=== PATIENT | male | born 1975 | race Caucasian/White ===

== ENCOUNTER → 2018-01-07 06:44 | Outpatient (CLI) | payer BC, SELFPAY ==
--- NOTE | 2018-01-07 07:05 | CT_ITS ---
CT abdomen pelvis w con CLINICAL INDICATION: Right lower quadrant pain ITS.REASON: RLQ PAIN ORDERING PHYSICIAN: Ayleen Lynn PATIENT AGE: 42 years COMPARISON: 01/05/2017 TECHNIQUE: Axial images obtained with sagittal and coronal reformats. All CT scans at the facility use one or more dose reduction, viz: automated exposure control, ma/kV adjustment per patient size (including targeted exams where dose is matched to indication, i.e. head), or iterative reconstruction technique. PROCEDURE: Oral Contrast: Redicat IV Contrast: 75 mL's of Isovue-370. FINDINGS: 3 mm nodular opacity left lung base laterally nonspecific. 9 mm isodensity right hepatic lobe probably due to small cyst unchanged. No new liver lesions. The gallbladder, spleen, adrenal glands, pancreas, and kidneys have an unremarkable appearance. No renal or ureteral calculi. No intestinal obstruction or free air. Unremarkable appearing appendix. No evidence of intestinal obstruction or free air. No evidence of diverticulitis. There has been interval umbilical hernia repair with tiny abdominal wall defects containing fat adjacent to the umbilicus on both right and left side consistent with tiny periumbilical hernias. There is some mild stranding of the fat within the left lower quadrant within the pelvis and may be related to prior surgery/hernia repair. No abnormal fluid collections. Unremarkable appearing urinary bladder. In the left hemiscrotum there is a ringlike circular density with some decreased attenuation centrally. Etiology is indeterminate. Possible hydrocele. Scrotal ultrasound may be of further value. This did have a similar appearance on the previous exam. IMPRESSION: 1. No evidence of appendicitis or obstructing ureteral calculus. 2. Status post umbilical hernia repair with small abdominal wall defects containing fat on each side of the umbilicus 3. Stranding/thickening of the peritoneal fat in the left lower quadrant deep to the inguinal region Auster related to prior hernia repair or remote inflammation. 4. Circular ringlike density in the left hemiscrotum is a large indeterminate not significant changed. Please correlate with clinical findings. Ultrasound of the hemiscrotum may be of further value if clinically warranted
== END ==
PROVIDERS: PCP Nurse Practitioner Family; Visit Provider Nurse Practitioner Family
DX: R10.31 Right lower quadrant pain (principal)
CPT/HCPCS: 74177; Q9967

== ENCOUNTER → 2018-01-21 08:10 | Outpatient (POV) | payer BC, SELFPAY | PROVIDERS: Visit Provider Nurse Practitioner Acute Care | DX: Z00.00 Encounter for general adult medical examination without abnormal findings (principal) ==

== ENCOUNTER 2020-04-16 15:00 | Emergency (ER) | payer MEDICAID, SELFPAY ==
[2020-04-16 15:02] VITALS: BP 149/83; PULSE 90; RESP 20; TEMP 36.9; O2SAT 98; BMI 30.6
--- NOTE | 2020-04-16 15:04 | [facility].EDGENADL ---
ED Disposition Clinical Impression: Viral illness Disposition: Home, Self-Care Condition on Discharge: Good Referrals: Ayleen Lynn [Primary Care Provider] - 3 days - Critical Care Critical Care Time: No Attestation: On , the high probability of a clinically significant, sudden or life threatening deterioration of the following system(s) required my full and direct attention, intervention and personal management. The time I documented below is in addition to time spent performing reported procedures but includes the following listed in this critical care notation. Medical Decision Making - Daniel Inquiry Pt receiving controlled substance: No Vital Signs: 04/16/20 15:02 Temperature 98.5 F Temperature Source Oral Pulse Rate [Left Radial] 90 Respiratory Rate 20 Blood Pressure [Right Arm] 149/83 H Blood Pressure Mean [Right Arm] 105 Blood Pressure Source [Right Arm] Automatic Cuff Blood Pressure Position [Right Arm] Sitting 02 Sat by Pulse Oximetry 98 Oxygen Delivery Method Room Air Orders (Tests/Meds): ORDERS Category Date Time Status Full Resp Panel w/COVID ([facility]) Routine Lab 04/16/20 15:00 Received Medical Decision Narrative: 44yo M evaluated for possible coronavirus. Patient is in no distress on initial evaluation. Satting 98% on room air. He is appropriate stable for discharge home. Swab is been collected. He will be called with results. General Adult HPI - General Stated complaint: wants Covid test,diarrhea,H/A,sore throat,weakness Time Seen by Provider: 04/16/20 15:04 Mode of Arrival: Ambulatory Source of Information: Patient Limitations: No Limitations - History of Present Illness HPI narrative: 44yo M without significant past medical history reports the emergency department secondary to signs and symptoms of coronavirus. Patient endorses fever, loss of sense, loss of smell, nausea. Patient states his has had several coworkers tested positive over the last week. She is also in the emergency department sick with symptoms at this time. He denies shortness of breath. - Related Data Previous Rx's Medication Instructions Recorded Azithromycin [Z-Andre 250mg Tab*] 250 mg PO UD DOSE PK #6 tab 04/20/19 Oseltamivir Phosphate [Tamiflu 75 mg PO BID #10 cap 04/20/19 75mg Capsule] Allergies Allergy/AdvReac Type Severity Reaction Status Date / Time No Known Allergies Allergy Verified 02/26/18 15:44 [facility] History - Hepatitis A Screen Drug use history?: No Attestation statement:: This patient has been screened for Hepatitis A risk factors. Medical History: Reports:: Gastroesophageal Reflux Disease(GERD) Denies:: Diabetes Mellitus Type 1, Diabetes Mellitus Type 2, Internal Pacemaker, Lung Disease, Seizures Other Medical History: Reports: Other (Obesity) Other Surgeries: Yes: Hernia Repair, Other (Cysto). No: Pacemaker - Social History Alcohol Intake: never Occupational Status: employed ROS Obtained: Yes All systems reviewed & no additional complaints Physical Exam - General General appearance: alert, in no apparent distress - Head Head exam: atraumatic, normocephalic, normal inspection - Eye Eye exam: Present: normal appearance, PERRL, EOMI - ENT ENT exam: Present: normal exam, normal oropharynx, mucous membranes moist, TM's normal bilaterally, normal external ear exam - Neck Neck exam: Present: normal inspection, full ROM, trachea midline. Absent: meningismus, lymphadenopathy - Chest Chest inspection: Present: normal inspection, symmetric chest wall rise. Absent: tenderness - Respiratory Respiratory exam: Present: normal lung sounds bilaterally. Absent: respiratory distress - Cardiovascular Cardiovascular exam: Present: regular rate, normal rhythm. Absent: JVD - Abdominal Exam Abdominal exam: Present: soft, normal bowel sounds. Absent: distention, tenderness, guarding - Extremities Exam Extremities exam: Present: normal inspection
[2020-04-16 15:18] LABS: Adenovirus,PCR Not Detected (NotDetected); Bordetella Pertussis Not Detected (NotDetected); Chlamydophila Pneumoniae, PCR Not Detected (NotDetected); Coronavirus 229E Not Detected (NotDetected); Coronavirus NL63 Not Detected (NotDetected); Coronavirus OC43 Not Detected (NotDetected); Coronovirus HKU1,PCR Not Detected (NotDetected); Human Metapneumovirus Not Detected (NotDetected); Influenza A, PCR Not Detected (NotDetected); Influenza AH1, 2009 Not Detected (NotDetected); Influenza AH1, PCR Not Detected (NotDetected); Influenza AH3,PCR Not Detected (NotDetected); Influenza B, PCR Not Detected (NotDetected); Mycoplasma Pneumoniae, PCR Not Detected (NotDetected); Parainfluenza 1, PCR Not Detected (NotDetected); Parainfluenza 2, PCR Not Detected (NotDetected); Parainfluenza 3, PCR Not Detected (NotDetected); Parainfluenza 4, PCR Not Detected (NotDetected); Respiratory Syncytial Virus Not Detected (NotDetected); Rhinovirus/Enterovirus Not Detected (NotDetected)
[2020-04-16 16:06] VITALS: BP 135/92; PULSE 88; RESP 18; TEMP 36.9; O2SAT 99
[2020-04-16 18:08] LABS: Coronavirus 19, PCR Detected (NotDetected)
== END 2020-04-16 16:07 | disposition home or self-care (01) ==
PROVIDERS: Emergency Provider Family Medicine; PCP Nurse Practitioner Family
DX: U07.1 COVID-19 (principal); K21.9 Gastro-esophageal reflux disease without esophagitis
CPT/HCPCS: 87581; 87633; 87798; 99282

== ENCOUNTER 2023-06-16 19:22 | Emergency (ER) | payer BC, SELFPAY ==
[2023-06-16 19:25] VITALS: PULSE 72; RESP 20; TEMP 36.7; O2SAT 97; BMI 33.5
--- NOTE | 2023-06-16 19:46 | EXP.UTC ---
Discharge Plan Disposition Patient Disposition: Home, Self-Care Condition: Good Prescriptions Prescriptions: No Action azithromycin 250 MG tablet 250 mg PO UD DOSE PK Qty: 6 0RF Rx Instructions: Take two (2) tablets today, then one (1) tablet days #2 thru #5 oseltamivir 75 MG capsule 75 mg PO BID Qty: 10 0RF Referrals Follow up/Referrals: Ayleen Lynn [Primary Care Provider] - See instructions Activity Restrictions/Add. Instructions Additional Instructions/Restrictions: follow up with dr lopez call sunday return to er if any issues Clinical Impressions Clinical Impression: Eye foreign body Qualifiers: Encounter type: initial encounter Laterality: left Qualified Code(s): T15.92XA - Foreign body on external eye, part unspecified, left eye, initial encounter Instructions Patient Instructions: DI for Foreign Body in the Eye Discharge ED Provider: Tad ([facility] [place] General Stated complaint: fob LT eye Mode of Arrival: Ambulatory Source of Information: Patient Limitations: No Limitations Time Seen by Provider: 06/16/23 19:46 Description of Symptoms (Recalled from Triage Doc. by RN): PATIENT STATES HE BELIEVES HE HAS GOTTEN A PIECE OF EITHER METAL OR PLASTIC IN HIS LEFT EYE TODAY AT WORK AROUND 1300. HEENT Symptoms (Recalled from RN notes): Yes Resp Symptoms (Recalled from RN notes): No Skin Symptoms (Recalled from RN notes): No MS Symptoms (Recalled from RN notes): No Functional Status (Recalled from RN notes): WNL History of Present Illness Provider Complaint: 47 YR OLD MALE PRESENTS FOR LEFT EYE PAIN.STATES HE BELIEVES HE HAS GOTTEN A PIECE OF EITHER METAL OR PLASTIC IN HIS LEFT EYE TODAY AT WORK AROUND 1300. Related Data Previous Rx's Medication Instructions Recorded azithromycin 250 mg tablet 250 mg PO UD DOSE PK #6 tabs 04/20/19 oseltamivir 75 mg capsule 75 mg PO BID #10 caps 04/20/19 Allergies Allergy/AdvReac Type Severity Reaction Status Date / Time No Known Allergies Allergy Verified 02/26/18 15:44 Worker's Comp Is this a Worker's Comp case?: No [facility] Disclaimer: The information contained in this section may have been updated after the patient was seen, as this information can be updated by other users. Social History , [employer]) Smoking Status: Smoker, status unknown alcohol intake: never current occupational status: employed Travel in the last 8 weeks: None caffeine: Yes ROS Obtained: Yes All systems reviewed & no additional complaints except as documented Constitutional Constitutional: Reports system reviewed and no additional complaints, except as documented and Reports as per HPI Eyes Eyes: Reports system reviewed and no additional complaints, except as documented, Reports as per HPI and Reports irritation ENT Ears, Nose, Mouth, and Throat: Reports system reviewed and no additional complaints, except as documented Cardiovascular Cardiovascular: Reports system reviewed and no additional complaints, except as documented Respiratory Respiratory: Reports system reviewed and no additional complaints, except as documented Gastrointestinal Gastrointestingal: Reports system reviewed and no additional complaints, except as documented Musculoskeletal Musculoskeletal: Reports system reviewed and no additional complaints, except as documented Integumentary/Breasts Skin/Breast: Reports system reviewed and no additional complaints, except as documented Neurologic Neurologic: Reports system reviewed and no additional complaints, except as documented Endocrine Endocrine: Reports system reviewed and no additional complaints, except as documented Hematologic/Lymphatic Henatologic/Lymphatic: Reports system reviewed and no additional complaints, except as documented Allergic/Immunologic Allergic/Immunologic: Reports system reviewed and no additional complaints, except as documented Physical Exam General General appearance: alert and in no apparent distress Head Head exam: atraumatic Eye Eye exam: Present PERRL and conjunctival redness ENT ENT exam: Present normal exam Respiratory Respiratory exam: Present normal lung sounds bilaterally Cardiovascular Cardiovascular exam: Present regular rate and normal rhythm Neurological Exam Neurological exam: Present alert and oriented X3 Skin Skin exam: Present warm Medical Decision Making Medical Records Medical records reviewed: Yes I reviewed the patient's medical records. Daniel Inquiry Pt receiving controlled substance: No Daniel was queried for this patient: No Vital Signs: 06/16/23 19:25 Temperature 98.0 F Temperature Source Oral Pulse Rate [Right] 72 Respiratory Rate 20 02 Sat by Pulse Oximetry 97 Oxygen Delivery Method Room Air Lab Data Lab results reviewed: Yes I reviewed the patient's lab results. Procedures Foreign Body Removal Time Out Performed: Yes Site: left (eye) Description of foreign body: other (metal) Eye Exam/FB Removal Location: eye (L) Topical anesthetic used: tetracaine Fluorescein Stick(s) used: Yes Time Out performed: Yes Procedure performed under: direct visualization with magnification and slit-lamp Foreign body: metal Evidence of corneal penetration: No Technique: cotton tip swab and needle Post-procedure medication: ophthalmic antibiotic Patient tolerated procedure: well and no complications Complications: incomplete foreign body removal and other (procedure was preformed by dr snyder)
[2023-06-16] MEDS: TET/DIPHTH/PERT-ADULT 0.5ML SYRINGE 0.5 ML IM (20:02)
[2023-06-16] MEDS: ERYTHROMYCIN BASE 1 GM OINT...G. 0.5 GM OP (20:17)
[2023-06-16] MEDS: TETRACAINE 0.5% OPTH SOL 15ML 15 ML OP (20:18)
[2023-06-16 20:19] VITALS: BP 0/0; PULSE 72; RESP 20; TEMP 36.7; O2SAT 97
== END 2023-06-16 20:28 | disposition home or self-care (01) ==
PROVIDERS: Emergency Provider Nurse Practitioner Family; PCP Nurse Practitioner Family
DX: T15.92XA Foreign body on external eye, part unspecified, left eye, initial encounter (principal); F17.210 Nicotine dependence, cigarettes, uncomplicated; W45.8XXA Other foreign body or object entering through skin, initial encounter; Z23 Encounter for immunization
CPT/HCPCS: 65205; 90471; 90715; 99204; 99213; G0463

== ENCOUNTER 2024-01-23 13:54 | Outpatient (CLI) | payer BC, SELFPAY ==
--- NOTE | 2024-01-23 13:57 | MR_ITS ---
FINAL REPORT CLINICAL HISTORY: PAIN in left knee COMPARISON: None FINDINGS: Multi planar MR imaging was performed of the left knee. The anterior and posterior cruciate ligaments are intact. The quadriceps and patellar tendons are intact. There is linear signal in the posterior horn of the medial meniscus consistent with a partial full-thickness tear. The lateral meniscus is intact. The medial and lateral collateral ligaments appear intact. The medial and lateral retinacula appear intact. There are small osteochondral lesions involving the articular surface of both the medial femoral condyle and medial tibial plateau. There are small osteophytes at the medial joint margin. A small joint effusion is present. IMPRESSION: Linear signal posterior horn medial meniscus consistent with a partial full-thickness tear. Small osteochondral lesions in the articular surfaces of both the medial femoral condyle and medial tibial plateau are noted. Small osteophytes at the medial joint margin. Reviewed, Interpreted and Dictated by Merlin Juarez MD Transcribed by Briana Gonzalez Authenticated and [facility]
== END 2024-01-23 23:59 | disposition home or self-care (01) ==
LOC: RAD 13:56
PROVIDERS: PCP Nurse Practitioner Family; Visit Provider Student in an Organized Health Care Education/Training Program
DX: M25.562 Pain in left knee (principal); S83.242A Other tear of medial meniscus, current injury, left knee, initial encounter
CPT/HCPCS: 73721

== ENCOUNTER 2024-05-22 11:00 | Outpatient (RCR) | payer BC, SELFPAY | END 2024-05-22 23:59 | disposition home or self-care (01) | LOC: PT 11:00 | PROVIDERS: Visit Provider Student in an Organized Health Care Education/Training Program | DX: Z98.890 Other specified postprocedural states (principal); M25.562 Pain in left knee | CPT/HCPCS: 97014; 97110; 97163; 97530; G0283 ==

== ENCOUNTER 2024-05-29 11:00 | Outpatient (RCR) | payer BC, SELFPAY | END 2024-05-29 13:00 | disposition home or self-care (01) | LOC: PT 11:00 | PROVIDERS: Visit Provider Student in an Organized Health Care Education/Training Program | DX: Z98.890 Other specified postprocedural states (principal); M25.562 Pain in left knee | CPT/HCPCS: 97014; 97110; 97530; G0283 ==

== ENCOUNTER 2024-09-16 08:03 | Outpatient (CLI) | payer BC, SELFPAY ==
--- OUTSIDE RECORDS SUMMARY | 2024-09-16 08:05 | XMS_ITS | Data Portability ---
Author Organization [facility] [place] JAZ Capps [place] [facility] Address [address] [place] [address] Care Team Providers Care Veneer Supervisor Name Role Phone SAVANNA DIGGS Primary Care Provider Assessment Encounter Date Assessment Date Assessment LastModified by Organization Details LastModified Time 04/05/2017 04/05/2017 We discussed trial of passage versus ureteroscopic stone extraction. He would like to have the ureteral stone removed due to an upcoming hernia surgery and he cannot have mesh placed with ureteral stone in place due to infection risk. [email or web address] Not available 04/05/2017 21:53:41 04/10/2017 04/10/2017 SURGERY DATE: 04/10/2017 PREOPERATIVE DIAGNOSIS: Left ureteral stone. POSTOPERATIVE DIAGNOSIS: Left ureteral stone. PROCEDURE: 1. Cystoscopy. 2. Left ureteroscopy. 3. Basket stone extraction. 4. Left ureteral stent placement. SURGEON: Mary Alice Mukherjee MD ANESTHESIA: General. ESTIMATED BLOOD LOSS: None. COMPLICATIONS: None. SPECIMENS: Left ureteral stones. INDICATIONS: Patient with left distal ureteral stones and upcoming hernia surgery. He has been told that the ureteral stones need to be removed prior to hernia surgery. We discussed the risks and benefits of ureteroscopic stone extraction. He voices his understanding. OPERATIVE NOTE: Patient was correctly identified in the preoperative holding area. Informed consent was obtained after all risks, benefits, alternatives were reviewed with the patient. He was taken to the procedure room, positioned in supine position where anesthesia was induced. He was repositioned to the lithotomy position with all pressure points padded and proper time-out procedure completed. Preoperative antibiotics were given. The genitourinary areas were prepped and draped in normal sterile fashion. A rigid cystoscope was advanced through the urethra into the bladder. Pancystoscopy performed. The central wire was intubated into the left distal ureter and advanced to the renal pelvis using fluoroscopic guidance. The scope was removed leaving the wire in place. Rigid ureteroscopy was then performed. The stones were visualized in the distal ureter. Basket stone extraction was then performed to remove the stones. Repeat ureteroscopy revealed no stone fragments remaining. The wire was then backed led to the rigid cystoscope and 4.8 Nepalese x 26 ureteral stent was advanced over the wire with good coils in proximally and distally. The string of the stent was secured to the patient's penis using Tegaderm. Lidocaine jelly was instilled for local analgesia. DISPOSITION: Patient tolerated procedure well. He was taken to the recovery room in stable condition. He was discharged home with instructions to follow up for ureteral stent removal. [email or web address] Not available 04/12/2017 00:19:04 04/26/2017 04/26/2017 We had discussion of kidney stone prevention. He was advised to increase fluid intake, decreased sodium intake, decreased oxalate intake, increased citrate intake. [email or web address] Not available 04/26/2017 13:52:15 Plan of Treatment Reminders Order Date Submit Date Provider Last Modified By Organization Details Last Modified Time Details Appointments None recorded. Lab urinalysis, dipstick, auto 2017 018 [email or web address] [facility] Extended Services With [address], [place], [address], 8 13:52:16 urinalysis, dipstick, auto 2016 017 [email or web address] [facility] Extended Services With [address], [place], [address], 7 17:10:59 Referral None recorded. Procedures None recorded. Surgeries cystoscopy, with ureteroscop y, with lithotripsy , with insertion of ureteral stent (SURG) 2016 017 [email or web address] [facility] Professional [facility]es, [address] [facility], [facility] [address], [place], [address], 7 09:22:46 Imaging None recorded. Medication Orders [place] 7.5 mg-325 mg tablet 2016 017 [email or web address] Not available 8 13:13:59 Cipro 500 mg tablet 2016 017 [email or web address] [facility]armacy #[id number], [address] [place], [address], 8 13:14:06 tamsulosin 0.4 mg capsule 2016 017 [email or web address] [facility]/Pharmacy #[id number], [address] [place], [address], 8 13:13:54 Patient TargetsNo targets recorded. Patient Instructions Encounter Date Encounter Id Patient Instructions Last Modified By Organization Details Last Modified Time 04/05/2017 [id number] healthy together PRIYA Not availabl e 04/08/2017 01:32:44 kidney stone: care instructions PRIYA Not available 04/08/2017 01:30:39 04/10/2017 [id number] kidney stone: care instructions [email or web address] Not available 04/10/2017 15:47:54 04/26/2017 [id number] learning about high blood pressure Not available 04/26/2017 13:52:16 kidney stone: care instructions [email or web address] Not available 04/26/2017 13:52:16 Reason for Referral None Reported. Results Created Date Observation Date Name Description Value Unit Range Abnormal Flag Note LastModifiedBy Organization Detail LastModifiedTime 04/26/19 18 04/26/2017 urina lysis , dipst ick, auto Unknown Analyte Yellow Not Available Count includes the [facility] [place] Extended Services With [address], [place], [address], 04/26/2017 13:15:13 04/26/19 18 04/26/2017 urina lysis , dipst ick, auto Unknown Analyte Clear Not Available Count [facility] [address], [place], [address], 04/26/2017 13:15:13 04/26/19 18 04/26/2017 urina lysis , dipst ick, auto Unknown Analyte 1.025 Not Available [facility] Extended Services With [address], [place], [address], 04/26/2017 13:15:13 04/26/19 18 04/26/2017 urina lysis , dipst ick, auto Unknown Analyte 5.0 Not Available [facility] Extended Services With [address] [place], [address], 04/26/2017 13:15:13 04/26/19 18 04/26/2017 urina lysis , dipst ick, auto Unknown Analyte Negati ve Not Available [facility] Extended Services With [address] [place], [address], 04/26/2017 13:15:13 04/26/19 18 04/26/2017 urina lysis , dipst ick, auto Unknown Analyte Negati ve Not Available [facility] Extended Services With [address], [place], [address], 04/26/2017 13:15:13 04/26/19 18 04/26/2017 urina lysis , dipst ick, auto Unknown Analyte Negtiv e Not Available [facility] Extended Services With [address] [place], [address], 04/26/2017 13:15:13 04/26/19 18 04/26/2017 urina lysis , dipst ick, auto Unknown Analyte Normal Not Available [facility] Extended Services With [address] [place], [address], 04/26/2017 13:15:13 04/26/19 18 04/26/2017 urina lysis , dipst ick, auto Unknown Analyte Negati ve Not Available [facility] Extended Services With [address] [place], [address], 04/26/2017 13:15:13 04/26/19 18 04/26/2017 urina lysis , dipst ick, auto Unknown Analyte Normal Not Available [facility] Extended Services With [address], [place], [address], 04/26/2017 13:15:13 04/26/19 18 04/26/2017 urina lysis , dipst ick, auto Unknown Analyte Negati ve Not Available [facility] Extended Services With [address] [place], [address], 04/26/2017 13:15:13 04/26/19 18 04/26/2017 urina lysis , dipst ick, auto Unknown Analyte Negati ve Not Available [facility] Extended Services With [address], [place], [address], 04/26/2017 13:15:13 04/26/19 18 04/26/2017 urina lysis , dipst ick, auto Unknown Analyte Clean Catch Not Available [facility] Extended Services With [address], [place], [address], 04/26/2017 13:15:13 04/26/19 18 04/26/2017 urina lysis , dipst ick, auto Unknown Analyte Automa reece Not Available [facility] Extended Services With [address] [place], [address], 04/26/2017 13:15:13 04/05/20 17 04/05/2017 urina lysis , dipst ick, auto Unknown Analyte Yellow Not Available [facility] Extended Services With [address] [place], [address], 04/05/2017 14:38:22 04/05/20 17 04/05/2017 urina lysis , dipst ick, auto Unknown Analyte Clear Not Available [facility] Extended Services With [address], [place], [address], 04/05/2017 14:38:22 04/05/20 17 04/05/2017 urina lysis , dipst ick, auto Unknown Analyte 1.015 Not Available [facility] Extended Services With [address], [place], [address], 04/05/2017 14:38:22 04/05/20 17 04/05/2017 urina lysis , dipst ick, auto Unknown Analyte 6.0 Not Available [facility] Extended Services With [address], [place], [address], 04/05/2017 14:38:22 04/05/20 17 04/05/2017 urina lysis , dipst ick, auto Unknown Analyte Negati ve Not Available [facility] Extended Services With [address], [place], [address], 04/05/2017 14:38:22 04/05/20 17 04/05/2017 urina lysis , dipst ick, auto Unknown Analyte Negati ve Not Available [facility] Extended Services With [address], [place], [address], 04/05/2017 14:38:22 04/05/20 17 04/05/2017 urina lysis , dipst ick, auto Unknown Analyte Negtiv e Not Available [facility] Extended Services With [address] [place], [address], 04/05/2017 14:38:22 04/05/20 17 04/05/2017 urina lysis , dipst ick, auto Unknown Analyte Normal Not Available [facility] Extended Services With [address] [place], [address], 04/05/2017 14:38:22 04/05/20 17 04/05/2017 urina lysis , dipst ick, auto Unknown Analyte Negati ve Not Available [facility] Extended Services With [address], [place], [address], 04/05/2017 14:38:22 04/05/20 17 04/05/2017 urina lysis , dipst ick, auto Unknown Analyte Normal Not Available [facility] Extended Services With [address] [place], [address], 04/05/2017 14:38:22 04/05/20 17 04/05/2017 urina lysis , dipst ick, auto Unknown Analyte Negati ve Not Available [facility] Extended Services With [address], [place], [address], 04/05/2017 14:38:22 04/05/20 17 04/05/2017 urina lysis , dipst ick, auto Unknown Analyte 50 Barrie/ul Not Available [facility] Extended Services With [address] [place], [address], 04/05/2017 14:38:22 04/05/20 17 04/05/2017 urina lysis , dipst ick, auto Unknown Analyte Clean Catch Not Available [facility] Extended Services With [address] [place], [address], 04/05/2017 14:38:22 04/05/20 17 04/05/2017 urina lysis , dipst ick, auto Unknown Analyte Automa reece Not Available [facility] Extended Services With [address] [place], [address], 04/05/2017 14:38:22 04/10/20 17 04/13/2017 kidne y stone ashley sis nidus Not observ ed normal Not Available [facility] [address] [place], [address], 04/13/2017 00:46:23 04/10/20 17 04/13/2017 kidne y stone ashley sis composition See Below normal Calci um Oxala te Dihyd rate (Wedd ellit e) 95% Calci um Oxala te Monoh ydrat e (Whew ellit e) 5% Not Available [facility] [address] [place], [address], 04/13/2017 00:46:23 04/10/20 17 04/13/2017 kidne y stone ashley sis weight 0.0240 g normal This test was devel oped and its ashley tical perfo rmanc e shauna cteri stics have been deter mined by [facility] Roland [facility]. It has not been clear ed or appro deborah by the [place] Food and Drug Admin istra tion. This assay has been valid ated pursu ant to the CLIA regul ation s and is used for clini claus purpo ses. TEST PERFO RMED AT: [facility] ROLADN LS RACHAEL RADHA [address] [place] [address] [facility] ISABELLE BENSON MD ,FCAP Not Available [facility] [address] [place], [address], 04/13/2017 00:46:23 04/10/20 17 04/10/2017 urina lysis , dipst ick, auto Unknown Analyte Yellow Not Available [facility] Surgery Schedule [address] [place], [address], 04/10/2017 13:10:20 04/10/20 17 04/10/2017 urina lysis , dipst ick, auto Unknown Analyte Clear Not Available [facility] Surgery Schedule [address] [place], [address], 04/10/2017 13:10:20 04/10/20 17 04/10/2017 urina lysis , dipst ick, auto Unknown Analyte 1.015 Not Available [facility] Surgery Schedule [address] [place], [address], 04/10/2017 13:10:20 04/10/20 17 04/10/2017 urina lysis , dipst ick, auto Unknown Analyte 6.0 Not Available [facility] Surgery Schedule [address] [place], [address], 04/10/2017 13:10:20 04/10/20 17 04/10/2017 urina lysis , dipst ick, auto Unknown Analyte Negati ve Not Available [facility] Surgery Schedule [address] [place], [address], 04/10/2017 13:10:20 04/10/20 17 04/10/2017 urina lysis , dipst ick, auto Unknown Analyte Negati ve Not Available [facility] Surgery Schedule [address] [place], [address], 04/10/2017 13:10:20 04/10/20 17 04/10/2017 urina lysis , dipst ick, auto Unknown Analyte Negtiv e Not Available [facility] Surgery Schedule [address] [place], [address], 04/10/2017 13:10:20 04/10/20 17 04/10/2017 urina lysis , dipst ick, auto Unknown Analyte Normal Not Available [facility] Surgery Schedule [address] [place], [address], 04/10/2017 13:10:20 04/10/20 17 04/10/2017 urina lysis , dipst ick, auto Unknown Analyte Negati ve Not Available [facility] Surgery Schedule [address] [place], [address], 04/10/2017 13:10:20 04/10/20 17 04/10/2017 urina lysis , dipst ick, auto Unknown Analyte 1 mg/dl Not Available [facility] Surgery Schedule [address] [place], [address], 04/10/2017 13:10:20 04/10/20 17 04/10/2017 urina lysis , dipst ick, auto Unknown Analyte 1 mg/dl (+) Not Available [facility] Surgery Schedule [address] [place], [address], 04/10/2017 13:10:20 04/10/20 17 04/10/2017 urina lysis , dipst ick, auto Unknown Analyte 250 Barrie/ul Not Available [facility] Surgery Schedule [address] [place], [address], 04/10/2017 13:10:20 04/10/20 17 04/10/2017 urina lysis , dipst ick, auto Unknown Analyte Clean Catch Not Available [facility] Surgery Schedule [address] [place], [address], 04/10/2017 13:10:20 04/10/20 17 04/10/2017 urina lysis , dipst ick, auto Unknown Analyte Automa reece Not Available [facility] Surgery Schedule [address] [place], [address], 04/10/2017 13:10:20 04/05/20 17 04/05/2017 CT, abdom en + pelvi s, w/o contr ast No observ ation record ed. [email or web address] [place] [address] (Radiology) [address] [place], [address], 04/05/2017 16:03:10 04/19/20 17 04/05/2017 CT, abdom en + pelvi s, w/o contr ast No observ ation record ed. BARCODE [facility] [address] [place], [address], 04/19/2017 17:22:40 04/19/20 17 04/05/2017 CT, abdom en + pelvi s, w/o contr ast No observ ation record ed. BARCODE Not Available 2016 17:50:01 04/19/20 17 03/17/2017 CT, abdom en + pelvi s, w/o contr ast No observ ation record ed. BARCODE Not Available 2016 17:50:01 04/19/20 17 04/05/2017 CT, abdom en + pelvi s, w/o contr ast No observ ation record ed. BARCODE Not Available 2016 17:50:01 Result Notes None recorded. Problems Name Problem SNOMED Code Status Onset Date Resolution Date Notes Provider Name and Address Organization Details Recorded Time Kidney stone 74380218 [facility] 04/05/2017 14:35:51 Problem Notes None recorded. Procedures Surgical History Date Name Laterality Status Provider Name and Address Organization Details Recorded Time Kidney Stones completed [facility] 04/05/2017 14:36:37 Imaging Results None recorded. Procedure Notes None recorded. Medical Equipment None Reported. Allergies No known drug allergies Medications Name Sig Start Date Stop Date Status Note LastModified by Organization Details LastModified Time tamsulosin 0.4 mg capsule Take 1 capsule every day by oral route for 30 days. 04/26 completed Not Available Not Available Not Available Cipro 500 mg tablet Take 1 tablet every 12 hours by oral route for 3 days. 04/26 completed Not Available Not Available Not Available [place] 7.5 mg-325 mg tablet Take 1 tablet every 4-6 hours by oral route as needed. 04/26 completed Not Available Not Available Not Available Percocet active Not Available Not Avai lable Not Available Vitals Date Recorded Body height Body mass index (BMI) Body weight Systolic And Diastolic Provider Name and Address Organization Details Last Updated DateTime 04/26/2017 190.5 cm 31.2 kg/m2 877127.09 g 115/78 mm[Hg] Deseriee Odessa [facility] 04/26/2017 13:13:45 Date Recorded Body height Body mass index (BMI) Body weight Systolic And Diastolic Provider Name and Address Organization Details Last Updated DateTime 04/05/2017 190.5 cm 31.2 kg/m2 868358.09 g 120/72 mm[Hg] Sohail Dickson [facility] 04/05/2017 14:35:01 Social History Question Answer Notes LastModified by Organizat ion Details LastModified Time Tobacco Smoking Status Never Smoker Sohail de la garza, [facility] 04/05/2017 14:36:23 Marital Status [email or web address] Informatio n not available 04/05/2017 What Was The Date Of Your Most Recent Tobacco Screening? 04/26/2017 Information n ot available 06/10/2019 Sex: Unknown Functional Status Question Answer Note LastModified by Organization D etails LastModified Time What is your level of alcohol consumption? None [email or web address] Information not available 04/05/2017 Mental Status None recorded. Family History Relationship Description Onset Age of this Age Resolved Age Notes LastModified by Organization Details LastModified Time Father Malignant neoplasm of prostate [email or web address] Not available 2016 14:36:01 Father Family history of malignant neoplasm [facility] Not available 2016 14:36:14 Medical History Condition Response Kidney Stones Y Kidney Disease N Past Encounters Encounter ID Performer Location Encounter Start Date Encounter Closed Date Diagnosis/Indication Diagnosis SNOMED-CT Code Diagnosis ICD10 Code Diagnosis Note [id number] MARY ALICE MUKHERJEE MD [facility] EXTENDED SERVICES [address] [place] [address] 04/05/2017 13:50:36 04/06/2017 09:29:18 Ureteric stone [id number] N20.1 [id number] MARY ALICE MUKHERJEE MD SURGERY SCHEDULE [address] [place] [address] 04/10/2017 12:51:07 04/10/2017 12:54:29 Ureteric stone [id number] N20.1 [id number] MARY ALICE MUKHERJEE MD [facility]TENDED [facility] [address] [place] [address] 04/26/2017 13:00:22 05/11/2017 11:41:16 Ureteric stone [id number] N20.1 Health Concerns Section Related Observation LastModified by Organization Detai ls LastModified Time None Recorded Concern Status LastModified by Organization Details LastModified Time None Recorded Advance Directives Directive None Recorded Payers Insurance Date Sequence Insurance Name Policy Number Policy Alvarado Covered Member ID Alvarado Member ID Guarantor Name 01/30/2022 1 [place] [id number] You Shafer [id number] You Shafer Notes Date Note Type Note Provider Name and Address Organization Details Recorded Time 04/05/2017 text/html 41-year-old male in the office for acute evaluation of left distal ureteral stone. He has history of urolithiasis, previously treated by Dr. Aly. The last 3 weeks he has intermittent left groin and flank pain. Pain 8 out of 10. He has upcoming hernia repair surgery. CT scan earlier today shows 3 mm left UVJ stone. He denies fevers or chills. He denies hematuria or dysuria. MARY ALICE MUKHERJEE MD [address] [place] [address], [address], [facility] 04/05/2017 21:55:20 04/26/2017 text/html 41-year-old male in the office for follow-up evaluation after recent left ureteroscopic stone extraction and stent placement. He subsequently had hernia repair. He denies hematuria or dysuria at this time. The stent was removed 3 days following surgery. MARY ALICE MUKHERJEE MD [address] [place] [address], [address], [facility] 04/26/2017 13:53:03
--- NOTE | 2024-09-16 08:08 | MR_ITS ---
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 The anterior and posterior cruciate ligaments are intact. The quadriceps and patellar tendons are intact. There has been placement of medial hemiarthroplasty with extensive magnetic artifact. The lateral meniscus is intact. The medial and lateral collateral ligaments appear intact. The medial and lateral retinacula appear intact. There is no evidence of bone marrow edema or osteochondral defect. There is grade I chondromalacia along the undersurface of the patella. Small joint effusion is identified. No evidence of soft tissue inflammatory reaction. IMPRESSION: Grade I chondromalacia patella. Extensive magnetic artifact associated with medial hemiarthroplasty Reviewed, Interpreted and Dictated by Merlin Juarez MD Transcribed by Adwoa Humphries Authenticated and [facility]
== END 2024-09-16 23:59 | disposition home or self-care (01) ==
LOC: RAD 08:04
PROVIDERS: PCP Nurse Practitioner Family; Visit Provider Student in an Organized Health Care Education/Training Program
DX: M22.42 Chondromalacia patellae, left knee (principal); Z96.652 Presence of left artificial knee joint
CPT/HCPCS: 73721